=== PATIENT | female | born 1980 | race Caucasian/White ===

== ENCOUNTER 2020-06-25 18:07 | Emergency (ER) | payer MEDICAID, SELFPAY ==
[2020-06-25 18:15] VITALS: BP 142/77; PULSE 80; RESP 18; O2SAT 97; BMI 30.2
--- NOTE | 2020-06-25 18:45 | HMH.EDUTC ---
[facility] [place] Disposition Clinical Impression: Cyst of buttocks Disposition: Home, Self-Care Condition on Discharge: Good Instructions: DI for Epidermal Cyst Additional Instructions: Follow up with the surgeon for removal of the skin lesion. Take the medications as directed and apply the topical antibiotic ointment too. Take warm sitz baths three times per day. Follow up with your regular doctor. GO TO THE ER FOR ANY WORSENING SYMPTOMS OR CONCERNS Prescriptions: Mupirocin [Bactroban 2% Ointment 22gm tube] 1 applicatio TP TID 7 Days #1 tube Transmission Status: Received by [id number] cephALEXin [Keflex 500mg Cap] 500 mg PO Q6H 10 Days #40 cap Transmission Status: Received by [id number] Referrals: PCP,No [Primary Care Provider] - Vijay Rand MD [Staff Physician] - Time of Disposition: 19:08 Medical Decision Making - Medical Records Medical records reviewed: No: I reviewed the patient's medical records. - Ryan Inquiry Pt receiving controlled substance: No Vital Signs: 06/25/20 18:15 06/25/20 18:50 06/25/20 19:20 Temperature 98.0 F 98.0 F Temperature Source Oral Pulse Rate 80 Pulse Rate [Radial] 80 80 Respiratory Rate 18 18 18 Blood Pressure 142/77 H Blood Pressure [Right Arm] 142/77 H 142/77 H Blood Pressure Mean [Right Arm] 98 98 Blood Pressure Source [Right Arm] Automatic Cuff Blood Pressure Position [Right Arm] Sitting 02 Sat by Pulse Oximetry 97 97 Oxygen Delivery Method Room Air [facility] [place] HPI - General Stated complaint: Cyst on b side of bottom/upper leg Time Seen by Provider: 06/25/20 18:45 Mode of Arrival: Ambulatory Limitations: No Limitations Description of Symptoms (Recalled from Triage Doc. by RN): Reports a cyst on her right gluteal fold that she cut open on thursday. says it is sore and that it still has stuff in it. - History of Present Illness Provider Complaint: She states that she has a cyst on her right buttock that has been present there for several years. Over the past 3 days she has tried to get fluid to come out of it and have it go away. But, when she punctured a hole in it nothing came out. Since then it has became sore around it and it has some redness surrounding it. - Related Data Previous Rx's Medication Instructions Recorded Mupirocin [Bactroban 2% Ointment 1 applicatio TP TID 7 Days #1 tube 06/25/20 22gm tube] cephALEXin [Keflex 500mg Cap] 500 mg PO Q6H 10 Days #40 cap 06/25/20 Allergies Allergy/AdvReac Type Severity Reaction Status Date / Time No Known Allergies Allergy Verified 06/25/20 18:54 [facility] History - Hepatitis A Screen Attestation statement:: This patient has been screened for Hepatitis A risk factors. I have reviewed the patient's past medical history: Yes ROS Obtained: Yes All systems reviewed & no additional complaints - Constitutional Constitutional: Denies chills, Denies fever(s) - Integumentary/Breasts Skin/Breast: Reports as per HPI Physical Exam - General General appearance: alert, in no apparent distress - Head Head exam: atraumatic, normocephalic, normal inspection - Eye Eye exam: Present: normal appearance, PERRL, EOMI - ENT ENT exam: Present: normal exam, normal oropharynx, mucous membranes moist, TM's normal bilaterally, normal external ear exam - Neck Neck exam: Present: normal inspection, full ROM, trachea midline. Absent: meningismus, lymphadenopathy - Chest Chest inspection: Present: normal inspection, symmetric chest wall rise. Absent: tenderness - Respiratory Respiratory exam: Present: normal lung sounds bilaterally. Absent: respiratory distress - Cardiovascular Cardiovascular exam: Present: regular rate, normal rhythm. Absent: JVD - Abdominal Exam Abdominal exam: Present: soft, normal bowel sounds. Absent: distention, tenderness, guarding - Extremities Exam Extremities exam: Present: normal inspection, full ROM,
[2020-06-25 18:50] VITALS: BP 142/77; PULSE 80; RESP 18; TEMP 36.7; O2SAT 97; BMI 30.3
[2020-06-25 19:20] VITALS: BP 142/77; PULSE 80; RESP 18; TEMP 36.7; O2SAT 97
== END 2020-06-25 19:21 | disposition home or self-care (01) ==
PROVIDERS: Emergency Provider Nurse Practitioner Family
DX: L72.9 Follicular cyst of the skin and subcutaneous tissue, unspecified (principal)
CPT/HCPCS: 99201